=== PATIENT | male | born 1990 | race Caucasian/White ===

== ENCOUNTER 2023-10-16 19:08 | Observation (INO) | payer OTHER ==
[2023-10-16 19:16] VITALS: BMI 25.2
[2023-10-16] MEDS ORDERED: SODIUM CHLORIDE 1,000 ML IV SCH (19:45)
[2023-10-16 20:35] LABS: BASO % 0.4 % (0-2.0); EOS % 3.5 % (0-4.5); HEMATOCRIT 43.3 % (35.4-49); HEMOGLOBIN 14.8 GM/dL (11.7-16.9); LYMPH % 35.2 % (8-40); MCH 29.8 pg (25.7-33.7); MCHC 34.2 g/dl (32.0-35.9); MEAN CELL VOLUME 87.3 fl (80-96); MEAN PLT VOLUME 7.5 fl (7.5-11.1); MONO % 9.9 % (3.8-10.2); PLATELET COUNT 234 10^3/uL (134-434); RBC 4.96 M/mm3 (4.00-5.60); RDW 13.3 % (11.9-15.9); WHITE BLOOD COUNT 8.1 K/mm3 (4.0-10.0)
[2023-10-16 20:42] LABS: INR 1.02 (0.83-1.09); PROTHROMBIN TIME (PATIENT) 11.8 SEC (9.7-13.0)
[2023-10-16 20:45] LABS: ACTIVATED PTT 29.2 SECONDS (25.2-36.5)
[2023-10-16 20:49] LABS: ALBUMIN 3.9 g/dl (3.4-5.0); CALCIUM 9.5 mg/dL (8.5-10.1)
[2023-10-16 20:51] LABS: BLOOD UREA NITROGEN 22.2 mg/dL (7-18)
[2023-10-16 20:53] LABS: CREATININE 1.2 mg/dL (0.55-1.3)
[2023-10-16 20:54] LABS: TOT PROT 7.5 g/dl (6.4-8.2)
[2023-10-16 20:56] LABS: BILIRUBIN,TOTAL 0.3 mg/dL (0.2-1)
[2023-10-17 01:15] VITALS: TEMP 97.5
[2023-10-17] MEDS ORDERED: ASPIRIN 325 MG ENTERIC COATED TABLET (FP) PO ONE (06:08)
[2023-10-17] MEDS ORDERED: ATORVASTATIN CA 40 MG TABLET (FP) PO ONE (07:45)
[2023-10-17] MEDS ORDERED: ATORVASTATIN CA 40 MG TABLET (FP) ONE (08:57)
[2023-10-17] MEDS ORDERED: ENOXAPARIN NA (PORCINE) 40 MG/0.4 ML DISP.SYRIN SQ ONE (08:58)
[2023-10-17 09:14] VITALS: RESP 16
[2023-10-17] MEDS ORDERED: ENOXAPARIN NA (PORCINE) 40 MG/0.4 ML DISP.SYRIN SQ SCH (10:00)
[2023-10-17 14:17] VITALS: BP 108/81; PULSE 72
[2023-10-18] MEDS ORDERED: ASPIRIN COATED 81 MG TABLET.EC PO SCH (10:00)
[2023-10-20 17:09] LABS: DRVVT - 40.1 sec (0.0-47.0)
== END 2023-10-17 15:25 | disposition home or self-care (01) ==
LOC: JER 19:08 → JERBED 22:12
PROVIDERS: ADMIT Internal Medicine; ATTEND Internal Medicine
PROC: 3E023GC Introduction of Other Therapeutic Substance into Muscle, Percutaneous Approach (ICD-10-PCS; principal; 2023-10-16)
DX: R29.898 Other symptoms and signs involving the musculoskeletal system (principal); R47.02 Dysphasia; R51.9 Headache, unspecified; I10 Essential (primary) hypertension
CPT/HCPCS: 36415; 70450-TC; 70551-TC; 80053; 80061; 81240; 81241; 82550; 82553; 83036; 84484; 85025; 85300; 85306; 85610; 85613; 85730; 85732; 86038; 86850; 86900; 86901; 93005; 93010; 93880-TC; 99285-25; G0378